=== PATIENT | male | born 1990 | race Caucasian/White ===

== ENCOUNTER 2020-08-01 11:50 | Emergency (ER) | payer OTHER, SELFPAY ==
[2020-08-01 11:58] VITALS: BP 131/87; PULSE 103; RESP 16; TEMP 37.2; O2SAT 100
--- NOTE | 2020-08-01 12:01 | ED.URI ---
HPI - URI/Sore Throat General Stated Complaint: fever,sore throat,body aches Time Seen by Provider: 08/01/20 12:01 Source: patient and RN notes reviewed History of Present Illness HPI Narrative: Patient is a 30-year-old male who presents the urgent care with complaints of body aches, fever and sore throat. Patient states that it started yesterday/last night and he has not taken anything [id number] for his symptoms. Denies of any nausea, vomiting, headache or abdominal pain. Denies of any known exposure to Covid, strep or influenza. No other acute complaints. No acute distress noted. Patient aware of the plan of care. Some parts of this dictation were generated by voice recognition software and may contain typographical and/or grammatical inaccuracies. Related Data Home Medications Medication Instructions Recorded Confirmed No Home Medications 08/01/20 08/01/20 Allergies Allergy/AdvReac Type Severity Reaction Status Date / Time No Known Allergies Allergy Verified 08/01/20 11:59 Review of Systems Review of Systems: Narrative: CONSTITUTIONAL: Reports of fever, chills EYES: Denies visual changes, redness, or discharge. ENT: Denies rhinorrhea, congestion, otalgia. Reports of sore throat CARDIOVASCULAR: Denies chest pain, palpitations, or edema. RESPIRATORY: Denies cough or dyspnea. GASTROINTESTINAL: Denies abdominal pain, nausea, vomiting, or diarrhea. GENITOURINARY: Denies dysuria or hematuria. SKIN: Denies rash or itching. MUSCULOSKELETAL: Denies back pain, joint pain. Reports body aches NEUROLOGIC: Denies headache, numbness, or weakness. All other systems reviewed are negative, except as documented in HPI. PMFSH Comments At the time of my signature, I reviewed and agree with the nursing past medical, surgical, social, and family history. There is no relevant family history pertinent to the patient complaint. Exam Narrative: Exam Narrative: GENERAL: This is a well-nourished, well-developed patient, in no apparent distress. HEAD: normocephalic, atraumatic. EYES: PERRL. Sclera clear/white. Vision is grossly intact. EARS: External ears normal, auditory canals clear and without drainage, TMs normal without perforation. Hearing grossly intact. NOSE: External nose normal with no obvious nasal discharge, nares without redness, no rhinorrhea. THROAT: Mucous membranes moist, moderate erythema noted posterior oropharynx moderate postnasal drainage NECK: Neck supple, non-tender without lymphadenopathy, masses or thyromegaly. CARDIOVASCULAR: Regular rate and rhythm without murmurs, gallops, or rubs. RESPIRATORY: Clear to auscultation. Breath sounds equal bilaterally. No wheezes, rales, or rhonchi. SKIN: warm, intact with no suspicious lesions or rash, good texture and turgor. NEURO: awake, alert, and oriented to person, place and time. There were no obvious focal neurologic abnormalities. EXTREMITIES: No clubbing, cyanosis, or edema. Course Vital Signs Vital signs: Vital Signs Temperature 99 F 08/01/20 11:58 Pulse Rate 103 H 08/01/20 11:58 Respiratory Rate 16 08/01/20 11:58 Blood Pressure 131/87 08/01/20 11:58 Pulse Oximetry 100 08/01/20 11:58 Temperature 99 F 08/01/20 11:58 Pulse Rate 103 H 08/01/20 11:58 Respiratory Rate 16 08/01/20 11:58 Blood Pressure 131/87 08/01/20 11:58 Pulse Oximetry 100 08/01/20 11:58 Reviewed MDM - URI/Sore Throat MDM Narrative Medical decision making narrative: Reviewed lab results with the patient. He is aware that strep swab was negative. Educated patient on culture we will call within 72 hours if culture is positive and antibiotics are necessary. Advised the patient to use [id number] medication such as Tylenol or ibuprofen as well as an antihistamine for postnasal drainage and sore throat. Use a humidifier at night and do not sleep with the windows open or a fan on. Follow-up with your PCP within 2 to 5 days or for worsening symptoms or f
== END 2020-08-01 12:20 | disposition home or self-care (01) ==
PROVIDERS: Emergency Provider Nurse Practitioner Family; PCP Internal Medicine
DX: J02.9 Acute pharyngitis, unspecified (principal)
CPT/HCPCS: 87081; 87880; 99213; G0463